=== PATIENT | male | born 1965 ===

== ENCOUNTER 2020-11-08 07:00 | Day surgery (SDC) | payer OTHER ==
[~2020-11-08] VITALS: Ht 162.6 cm; Wt 77.1 kg
[~2020-11-08 07:00] MED LIST: BACLOFEN10 MG PO; LAMICTAL100 M1 PO; PEPCID PO; RISPERDAL1 MG PO; TOPROL XL25 M1 PO; TRAMAD PO; XANAX XR0.5 MG PO; ZESTRIL20 MG PO
[2020-11-08] MEDS ORDERED: DIAZEPAM5 MG PO (07:24)
[2020-11-08] MEDS ORDERED: COLACE100 MG PO (07:24)
[2020-11-08] MEDS ORDERED: PERCOCET 5-3251 EACH PO (07:24)
== END 2020-11-09 12:00 | disposition home or self-care (01) ==
LOC: CIR.AMB 07:00 → SURH 10:00 → CIR.AMB 10:00 → EDSTATUS 10:00 → SURG 13:38 → O/R 13:38 → SURG 11-09 11:12 → CIR.AMB 11-09 12:00
PROVIDERS: ATTEND Orthopaedic Surgery Orthopaedic Surgery of the Spine
DX: M50.322 Other cervical disc degeneration at C5-C6 level (principal); Z20.822 Contact with and (suspected) exposure to COVID-19; M48.02 Spinal stenosis, cervical region
CPT/HCPCS: 20930; 20939; 22551; 22552; 22845; 22853 ×2; C1776